=== PATIENT | male | born 1965 | race Caucasian/White ===

== ENCOUNTER 2018-03-14 00:39 | Day surgery (SDC) | payer OTHER ==
[~2018-03-14] VITALS: Ht 190.5 cm; Wt 104.3 kg
[2018-03-14] VITALS (7 sets, daily range): BP systolic 93–140; BP diastolic 71–93
[~2018-03-14 00:39] MED LIST: ASPI81TA94 PO; CEPH-13 PO; LOR5 PO; METF-450 PO; NAPR-723 PO; NO ROUTINE MEDS; PROB500T31 PO
[2018-03-14] MEDS ORDERED: LIDOCAINE/SOD BICARB 8.4% SYR ID ONE (06:50)
[2018-03-14] MEDS ORDERED: NORMOSOL R SOLN(*) 1000 ML BAG 1,000 ML IV PRN (07:50)
[2018-03-14] MEDS ORDERED: PROPOFOL EMUL(*) 10MG/ML 20 ML 60 ML ONE (10:40)
== END 2018-03-14 09:50 | disposition home or self-care (01) ==
LOC: OR 00:39
PROVIDERS: ATTEND Family Medicine
DX: Z12.11 Encounter for screening for malignant neoplasm of colon (principal); Z83.71 Family history of colonic polyps; K63.5 Polyp of colon; I10 Essential (primary) hypertension; E11.9 Type 2 diabetes mellitus without complications; Z79.84 Long term (current) use of oral hypoglycemic drugs; Z87.891 Personal history of nicotine dependence
CPT/HCPCS: 00811; 36416; 45385; 82948; 88305; J2704